=== PATIENT | male | born 1940 | race Caucasian/White ===

== ENCOUNTER 2025-03-30 10:25 | Emergency (ER) | payer OTHER, MEDICARE ==
[~2025-03-30] VITALS: Ht 170.2 cm; Wt 83.9 kg
--- NOTE | 2025-03-30 11:00 | RADIOLOGY REPORT ---
EXAM: DI CHEST,SINGLE VIEW Indication: pain; r/o PNA Technique: Single frontal view of the chest was obtained Comparison: None FINDINGS: Lines and Tubes: None Lungs: No focal consolidation. Pleura: No effusion. No pneumothorax. Cardiomediastinal contours: Unremarkable Bones: No acute osseous abnormality. IMPRESSION: No acute cardiopulmonary disease.
--- NOTE | 2025-03-30 14:30 | Physician Documentation ---
History of Present Illness ~ Chief Complaint: Cough Stated Complaint: COUGH Time Seen by MD: 14:20 OK to notify your PCP?: Yes Source: patient Mode of Arrival: POV Exam Limitations: no limitations HPI Chief Complaint: Cough, shortness for breath Caveat: None Independent Historians: History of Present Illness: Patient is a 84-year-old man comes in complaining of cough for one week productive of bradford yellow sputum. He has had increasing shortness of breath over the week especially with exertion and at night when sleeping. No chest pain. No fever. No abdominal pain. No nausea vomiting diarrhea. Review of systems: All systems were reviewed and are negative except for what is indicated in the history of present illness. Past Medical History: COPD, HTN, gout, peripheral edema Past Surgical History: Noncontributory Social History: , no tobacco use, no alcohol use, no drug use Medications: Reviewed as documented Nursing Notes Allergies: Reviewed as documented in Nursing Notes Medication Reconciliation Allergies: Coded Allergies: No Known Allergies (Unverified , 03/30/25) Scheduled Azithromycin (Zithromax), 1 TAB PO UD Prednisone* (Prednisone*), 1 TAB PO Q12H Review of Systems All Other Systems at this time: Reviewed and Negative ROS Patient denies any other acute symptoms other than above. All other systems are negative Physical Exam Vital Signs: RN Vital Signs have been reviewed: Yes, Temperature: 98.2, Source: Oral, Heart Rate: 69, Respiratory Rate: 16, BP: 108/63, Pulse Oximetry: 98, Weight: 83.900 Oxygen Flow Rate: 0 Pulse Oximetry Reflects: adequate oxygenation Physical Exam General Appearance: No distress HEENT: Normal OP, moist oral mucosa, PERRL, EOMI Neck: supple, normal ROM, trachea midline Pulmonary: No respiratory distress, course expiratory wheezes on the right with occasional rhonchi, BS equal Cardiac: RRR, no murmur, rub or gallop, 1+ lower extremity edema GI: nondistended, soft, nontender, normal bowel sounds, no guarding, no rebound Extremities: normal ROM, no swelling, non-tender Skin: intact, dry, warm, no rashes Neuro: AAOx3, speech is clear, no focal motor weakness Psych: normal affect, good eye contact, no apparent hallucination, normal speech Progress Results/Orders Results/Orders Orders - ZULMA PEREZ MD Chest,Single View (03/30/25 10:33) Prednisone Tablet (Prednisone Tablet) (03/30/25 15:05) Completed Orders - ZULMA PEREZ MD Chest,Single View (03/30/25 10:33) Vital Signs 03/30/25 03/30/25 03/30/25 10:28 12:15 14:20 Temp 98.3 98.2 Pulse 73 69 Resp 16 16 16 B/P (MAP) 123/56 108/63 (78) Pulse Ox 94 98 O2 Flow Rate 0 0 Medical Decision Making Findings Differential diagnosis includes but is not limited to: Pneumonia, acute bronchitis, congestive heart failure, COPD exacerbation, sepsis Chest x-ray, single view, indication: COUGH Independent interpretation: LUNGS ARE CLEAR, NORMAL MEDIASTINUM, NORMAL CARDIAC [place], NO ACUTE CARDIOPULMONARY PROCESS Emergency department course/medical decision-making: Patient presents with increasing cough and shortness of breath over the last week. Patient was COPD. He was thought to have acute COPD exacerbation. There is no evidence of pneumonia. No evidence of congestive heart failure. Do not suspect acute coronary syndrome. Patient will be treated as acute COPD exacerbation with Zithromax and prednisone. Patient was given prednisone 60 mg orally here. Patient is not in any respiratory distress. He is not requiring oxygen. Patient was not septic. Test results and treatment plan reviewed with the patient. Patient was stable for discharge. Departure Time of Disposition: 15:02 Disposition: 01 HOME / SELF CARE / HOMELESS Impression: Primary Impression: COPD exacerbation Condition: Stable Discharge Instructions: Chronic Obstructive Pulmonary Disease Exacerbation, [id number] Additional Instructions: RETURN TO THE ER IF YOU HAVE INCREASING DIFFICULTY BREATHING. Prescriptions Prednisone* (Prednisone*) 20 Mg Tablet 1 TAB PO Q12H for 4 Days, #8 TAB Prov: ZULMA PEREZ MD 03/30/25 Azithromycin (Zithromax) 250 Mg Tablet 1 TAB PO UD for 5 Days, #6 TAB 2 the first day followed by 1 for days 2-5 Prov: ZULMA PEREZ MD 03/30/25 Education Educated: Patient Educated regarding: diagnosis, treatment, need for follow up Signature Scribe Signature: No scribe Attestation: No scribe ZULMA PEREZ MD March 30, 2025 14:30
[2025-03-30] MEDS ORDERED: AZIT250T89 PO (15:04)
[2025-03-30] MEDS ORDERED: PRED20TA PO (15:04)
[2025-03-30] MEDS: predniSONE 20 mg tablet PO ONE (15:06)
[2025-03-30 15:27] VITALS: BP 115/65; PULSE 68; RESP 16; TEMP 98.4; O2SAT 98
== END 2025-03-30 15:30 | disposition home or self-care (01) ==
LOC: ER 10:26
DX: J44.1 Chronic obstructive pulmonary disease with (acute) exacerbation (principal); I10 Essential (primary) hypertension
CPT/HCPCS: 71045; 99283; J7512